=== PATIENT | female | born 1950 | race Caucasian/White ===

== ENCOUNTER 2017-01-06 11:31 | Emergency (ER) | payer OTHER, MEDICARE ==
--- NOTE | 2017-01-06 13:00 | DIAGNOSTIC IMAGING REPORT ---
PROCEDURE: CT HEAD WITHOUT CONTRAST INDICATION: TRAUMA/INJURY TECHNIQUE: Axial CT images were acquired through the head. Coronal and sagittal reformations were created. COMPARISON: None. FINDINGS: No intracranial hemorrhage or extraaxial fluid collections. Ventricles are normal in size, shape and position. There is no mass, mass effect or midline shift. The ty-white matter differentiation is normal. There is no edema. The paranasal sinuses and mastoid air cells are normally aerated. There is a small subgaleal hematoma on the left occipital region without underlying fracture. The globes, orbits, and other extracranial soft tissues are otherwise normal. IMPRESSION: 1. No CT evidence of acute intracranial process. 2. Small left occipital soft tissue hematoma without underlying fracture. 3. Findings discussed with Dr. Solis at 12:[address] scans at this facility use dose modulation, iterative reconstruction, and/or weight-based dosing when appropriate to reduce radiation dose to as low as reasonably achievable.
--- NOTE | 2017-01-06 16:09 | DIAGNOSTIC IMAGING REPORT ---
PROCEDURE: XR CHEST 1 VIEW INDICATION: SYNCOPE TECHNIQUE: Portable AP view (). COMPARISON: None. FINDINGS: Lungs are clear. Heart and mediastinum are normal. Thorax is normal. IMPRESSION: 1. Negative chest.
--- NOTE | 2017-01-06 16:47 | ED CLINICAL REPORT ---
Clinical Report - Physicians/Mid Levels [facility] [address] [place] [address] 01/06/2017 11:32 Patient: JARON SALTER Time Seen: 11:48. Arrived- By private vehicle. Historian- patient. HISTORY OF PRESENT ILLNESS Chief Complaint: SINGLE SYNCOPAL EPISODE. The patient has recovered. It was abrupt in onset. This occurred just prior to arrival. Event was not witnessed. At time of event, she was standing. This did not occur during exertion. The patient lost consciousness and collapsed. No incontinence. The patient had preceding symptoms of light-headedness. No preceding symptoms of nausea, dim vision, chest pain, warmth or abdominal pain. Had a single episode. The episode was brief and lasted an unknown duration. No injuries noted. Currently has headache (with dizziness). Similar symptoms previously: Several times. REVIEW OF SYSTEMS All systems otherwise negative, except as recorded above. PAST HISTORY ( PCP - [facility]). Problems: Roescia . Back Injury. Depression. Back Pain. Hypertension. Additional Surgeries: Appendectomy. Medications: Doxycycline (Rosacea) Oral. Multi Vitamin/Minerals Oral. Allergies: None. SOCIAL HISTORY Never smoker. No alcohol use or drug use. FAMILY HISTORY Heart disease in first-degree relative (father), grandparent; cancer in first-degree relative (mother). father due to aspiration pneumonia, he had hydrocephalus. ADDITIONAL NOTES The nursing notes have been reviewed. PHYSICAL EXAM Vital Signs: 01/06/2017 11:33 BP: 154/90. HR: 92. RR: 13. O2 saturation: 100%. Temp: 98 F. Pain level now: 1010. Have been reviewed. Appearance: Alert. Eyes: Pupils equal, round and reactive to light. No nystagmus. ENT: Normal ENT inspection. Pharynx normal. Neck: Normal inspection. Neck supple. CVS: Normal heart rate and rhythm. Heart sounds normal. Respiratory: No respiratory distress. Breath sounds normal. Abdomen: Soft and nontender. No organomegaly. Back: Normal inspection. Skin: Skin warm and dry. Normal skin color. No rash. Normal skin turgor. Extremities: Extremities exhibit normal ROM. No calf tenderness. No lower extremity edema. Neuro: Alert. Oriented X 3. Mood/affect normal. Speech normal. Cranial nerves normal (as tested). No cerebellar findings. No motor deficit. No sensory deficit. LABS, X-RAYS, AND EKG EKG: Rate: 88. RBBB. Prior EKG unavailable. The study has been independently viewed by me. Chest X-ray: Normal Chest X-Ray. CT Head: (IMPRESSION: 1. No CT evidence of acute intracranial process. 2. Small left occipital soft tissue hematoma without underlying fracture.). The study was interpreted contemporaneously by me and discussed with the radiologist. Laboratory Tests: UA-Culture if indicated: (ALICE: 01/06/2017 14:14) ( MsgRcvd 01/06/2017 14:46) Final results Test Result Flag Units (Reference) URINE COLOR YELLOW URINE APPEARANCE CLEAR URINE GLUCOSE NEGATIVE (NEGATIVE) URINE BILIRUBIN NEGATIVE (NEGATIVE) URINE KETONE 3+ (NEGATIVE) URINE SPECIFIC GRAVITY 1.020 (1.010-1.030) URINE PH 6.0 (5.0-8.0) URINE PROTEIN NEGATIVE (NEGATIVE) URINE UROBILINOGEN 0.2 EU/dL (0.2-1.0) URINE NITRITE NEGATIVE (NEGATIVE) URINE BLOOD NEGATIVE (NEGATIVE) URINE LEUK ESTERASE NEGATIVE (NEGATIVE) URINE RBC NONE SEEN rbc/hpf (0-1) URINE WBC 0-1 wbc/hpf (0-1) URINE EPITHELIAL CELLS 0-1 EPI/hpf (0-5) URINE BACTERIA NONE SEEN (NONE SEEN) URINE COMMENT CULT NOT INDICATED URINE CULTURES ARE SET-UP BASED ON THE FOLLOWING CRITERIA:POSITIVE NITRITEPOSITIVE LEUKOCYTE ESTERASEGREATER THAN 10 WHITE BLOOD CELLSMODERATE (2+) OR GREATER BACTERIA CBC w Diff: (ALICE: 01/06/2017 11:35) ( [facility] 01/06/2017 11:55) Final results Test Result Flag Units (Reference) WHITE BLOOD COUNT 6.7 K/uL (4.5-11.5) RED BLOOD COUNT 4.25 M/uL (4.00-5.20) HEMOGLOBIN 12.7 gm/dL (12.0-16.0) HEMATOCRIT 38.2 % (36.0-46.0) MEAN CELL VOLUME 90 fL (80-100) MEAN CORPUSCULAR HGB 30 pg (26-34) MEAN CORPUSCULAR HGB CONC 33 g/dL (31-37) RED CELL DISTRIBUTION WIDTH 13.9 % (11.6-14.8) PLATELET COUNT 295 K/uL (150-400) NEUTROPHIL % 56.7 % (50-75) LYMPH % 33.8 % (25-40) MONO % 6.4 % (3-14) EOSINOPHIL % 1.9 % (0-4) BASOPHIL % 1.2 % (0-2) CPK: (ALICE: 01/06/2017 11:35) ( [facility] 01/06/2017 19:12) Final results Test Result Flag Units (Reference) CPK 83 U/L (24-260) TROPONIN I <0.05 ng/mL (0.00-1.5) TROPONIN REFERENCE RANGE:<0.1 NEGATIVE0.1-1.5 INDETERMINANT>1.5 POSITIVE CMP: (ALICE: 01/06/2017 11:35) ( MsgRcvd 01/06/2017 12:11) Final results Test Result Flag Units (Reference) GLUCOSE 91 mg/dL (70-110) BUN 10 mg/dL (7-18) CREATININE 0.8 mg/dL (0.6-1.3) Estimated GFR >60 mL/min Estimated GFR- >60 mL/min Note: Persistent reduction over 3 months in eGFR<60 mL/min/1.73 m2 defines CKD. Patients with eGFR values>=60 mL/min/1.73 m2 may also have CKD if evidence ofpersistent proteinuria. Additional information may be foundat [email or web address].org. SODIUM 139 mmol/L (136-145) POTASSIUM 3.5 mmol/L (3.5-5.1) CHLORIDE 103 mmol/L (98-107) CARBON DIOXIDE 26 mmol/L (21-32) CALCIUM 9.6 mg/dL (8.5-10.1) TOTAL PROTEIN 7.5 g/dL (6.4-8.2) ALBUMIN 4.0 g/dL (3.3-5.0) BILIRUBIN, TOTAL 0.5 mg/dL (0.0-1.0) ALKALINE PHOSPHATASE 28 L U/L (46-116) AST (SGOT) 19 U/L (15-37) ALT (SGPT) 20 U/L (12-78) LIPASE 172 U/L (73-393) AMYLASE 41 U/L (25-115) . PROGRESS AND PROCEDURES Course of Care: Patient is stable. Discussed case with on-call health care provider, (Mendez Gentile). Reviewed test results and need for additional work-up. Agreed upon treatment plan and need for patient follow-up. Health care provider will see patient in office. Consult obtained. Dr. Morgan - he reviewed the patient's history, laboratory results, EKG and chest x-ray results with me. He felt that the rest of the patient's workup could be performed on an outpatient basis. Case discussed. Patient/family counseled. Old medical records reviewed. Disposition: Discharged. Condition: stable. CLINICAL IMPRESSION Syncope. Minor head injury. Loss of consciousness of unknown duration. INSTRUCTIONS Rest. Drink plenty of fluids. (Follow-up with Dr. Rick Simms M.D. tomorrow. Call the [facility] [place] to schedule a visit at: [facility] ). Warnings: Further evaluation is necessary. HEAD INJURY PRECAUTIONS: An observer must check on the patient every 2 hours for the next 24 hours (awaken if sleeping) to confirm that the patient responds as expected, is not confused, has no new weakness or numbness, and has no other problems. GENERAL WARNINGS: Return or contact your physician immediately if your condition worsens or changes unexpectedly, if not improving as expected, or if other problems arise. Your Current Medications: CONTINUE TAKING THE FOLLOWING MEDICATIONS: Doxycycline (Rosacea) Oral. Multi Vitamin/Minerals Oral. Follow-up: Follow up with your doctor. Follow up with a latin dance instructor- as recommended by your primary care physician. Understanding of the discharge instructions verbalized by patient. (Electronically signed by Gold Solis MD 01/08/2017 2:56)
--- NOTE | 2017-01-06 16:47 | ED CLINICAL REPORT ---
Clinical Report - Physicians/Mid Levels [facility] [address] [place] [address] 01/06/2017 11:32 Patient: JARON SALTER Time Seen: 11:48. Arrived- By private vehicle. Historian- patient. HISTORY OF PRESENT ILLNESS Chief Complaint: SINGLE SYNCOPAL EPISODE. The patient has recovered. It was abrupt in onset. This occurred just prior to arrival. Event was not witnessed. At time of event, she was standing. This did not occur during exertion. The patient lost consciousness and collapsed. No incontinence. The patient had preceding symptoms of light-headedness. No preceding symptoms of nausea, dim vision, chest pain, warmth or abdominal pain. Had a single episode. The episode was brief and lasted an unknown duration. No injuries noted. Currently has headache (with dizziness). Similar symptoms previously: Several times. REVIEW OF SYSTEMS All systems otherwise negative, except as recorded above. PAST HISTORY ( PCP - [facility]). Problems: Roescia . Back Injury. Depression. Back Pain. Hypertension. Additional Surgeries: Appendectomy. Medications: Doxycycline (Rosacea) Oral. Multi Vitamin/Minerals Oral. Allergies: None. SOCIAL HISTORY Never smoker. No alcohol use or drug use. FAMILY HISTORY Heart disease in first-degree relative (father), grandparent; cancer in first-degree relative (mother). father due to aspiration pneumonia, he had hydrocephalus. ADDITIONAL NOTES The nursing notes have been reviewed. PHYSICAL EXAM Vital Signs: 01/06/2017 11:33 BP: 154/90. HR: 92. RR: 13. O2 saturation: 100%. Temp: 98 F. Pain level now: 1010. Have been reviewed. Appearance: Alert. Eyes: Pupils equal, round and reactive to light. No nystagmus. ENT: Normal ENT inspection. Pharynx normal. Neck: Normal inspection. Neck supple. CVS: Normal heart rate and rhythm. Heart sounds normal. Respiratory: No respiratory distress. Breath sounds normal. Abdomen: Soft and nontender. No organomegaly. Back: Normal inspection. Skin: Skin warm and dry. Normal skin color. No rash. Normal skin turgor. Extremities: Extremities exhibit normal ROM. No calf tenderness. No lower extremity edema. Neuro: Alert. Oriented X 3. Mood/affect normal. Speech normal. Cranial nerves normal (as tested). No cerebellar findings. No motor deficit. No sensory deficit. LABS, X-RAYS, AND EKG EKG: Rate: 88. RBBB. Prior EKG unavailable. The study has been independently viewed by me. Chest X-ray: Normal Chest X-Ray. CT Head: (IMPRESSION: 1. No CT evidence of acute intracranial process. 2. Small left occipital soft tissue hematoma without underlying fracture.). The study was interpreted contemporaneously by me and discussed with the radiologist. Laboratory Tests: UA-Culture if indicated: (ALICE: 01/06/2017 14:14) ( MsgRcvd 01/06/2017 14:46) Final results Test Result Flag Units (Reference) URINE COLOR YELLOW URINE APPEARANCE CLEAR URINE GLUCOSE NEGATIVE (NEGATIVE) URINE BILIRUBIN NEGATIVE (NEGATIVE) URINE KETONE 3+ (NEGATIVE) URINE SPECIFIC GRAVITY 1.020 (1.010-1.030) URINE PH 6.0 (5.0-8.0) URINE PROTEIN NEGATIVE (NEGATIVE) URINE UROBILINOGEN 0.2 EU/dL (0.2-1.0) URINE NITRITE NEGATIVE (NEGATIVE) URINE BLOOD NEGATIVE (NEGATIVE) URINE LEUK ESTERASE NEGATIVE (NEGATIVE) URINE RBC NONE SEEN rbc/hpf (0-1) URINE WBC 0-1 wbc/hpf (0-1) URINE EPITHELIAL CELLS 0-1 EPI/hpf (0-5) URINE BACTERIA NONE SEEN (NONE SEEN) URINE COMMENT CULT NOT INDICATED URINE CULTURES ARE SET-UP BASED ON THE FOLLOWING CRITERIA:POSITIVE NITRITEPOSITIVE LEUKOCYTE ESTERASEGREATER THAN 10 WHITE BLOOD CELLSMODERATE (2+) OR GREATER BACTERIA CBC w Diff: (ALICE: 01/06/2017 11:35) ( [facility] 01/06/2017 11:55) Final results Test Result Flag Units (Reference) WHITE BLOOD COUNT 6.7 K/uL (4.5-11.5) RED BLOOD COUNT 4.25 M/uL (4.00-5.20) HEMOGLOBIN 12.7 gm/dL (12.0-16.0) HEMATOCRIT 38.2 % (36.0-46.0) MEAN CELL VOLUME 90 fL (80-100) MEAN CORPUSCULAR HGB 30 pg (26-34) MEAN CORPUSCULAR HGB CONC 33 g/dL (31-37) RED CELL DISTRIBUTION WIDTH 13.9 % (11.6-14.8) PLATELET COUNT 295 K/uL (150-400) NEUTROPHIL % 56.7 % (50-75) LYMPH % 33.8 % (25-40) MONO % 6.4 % (3-14) EOSINOPHIL % 1.9 % (0-4) BASOPHIL % 1.2 % (0-2) CPK: (ALICE: 01/06/2017 11:35) ( [facility] 01/06/2017 19:12) Final results Test Result Flag Units (Reference) CPK 83 U/L (24-260) TROPONIN I <0.05 ng/mL (0.00-1.5) TROPONIN REFERENCE RANGE:<0.1 NEGATIVE0.1-1.5 INDETERMINANT>1.5 POSITIVE CMP: (ALICE: 01/06/2017 11:35) ( MsgRcvd 01/06/2017 12:11) Final results Test Result Flag Units (Reference) GLUCOSE 91 mg/dL (70-110) BUN 10 mg/dL (7-18) CREATININE 0.8 mg/dL (0.6-1.3) Estimated GFR >60 mL/min Estimated GFR- >60 mL/min Note: Persistent reduction over 3 months in eGFR<60 mL/min/1.73 m2 defines CKD. Patients with eGFR values>=60 mL/min/1.73 m2 may also have CKD if evidence ofpersistent proteinuria. Additional information may be foundat [email or web address].org. SODIUM 139 mmol/L (136-145) POTASSIUM 3.5 mmol/L (3.5-5.1) CHLORIDE 103 mmol/L (98-107) CARBON DIOXIDE 26 mmol/L (21-32) CALCIUM 9.6 mg/dL (8.5-10.1) TOTAL PROTEIN 7.5 g/dL (6.4-8.2) ALBUMIN 4.0 g/dL (3.3-5.0) BILIRUBIN, TOTAL 0.5 mg/dL (0.0-1.0) ALKALINE PHOSPHATASE 28 L U/L (46-116) AST (SGOT) 19 U/L (15-37) ALT (SGPT) 20 U/L (12-78) LIPASE 172 U/L (73-393) AMYLASE 41 U/L (25-115) . PROGRESS AND PROCEDURES Course of Care: Patient is stable. Discussed case with on-call health care provider, (Mendez Gentile). Reviewed test results and need for additional work-up. Agreed upon treatment plan and need for patient follow-up. Health care provider will see patient in office. Consult obtained. Dr. Morgan - he reviewed the patient's history, laboratory results, EKG and chest x-ray results with me. He felt that the rest of the patient's workup could be performed on an outpatient basis. Case discussed. Patient/family counseled. Old medical records reviewed. Disposition: Discharged. Condition: stable. CLINICAL IMPRESSION Syncope. Minor head injury. Loss of consciousness of unknown duration. INSTRUCTIONS Rest. Drink plenty of fluids. (Follow-up with Dr. Rick Simms M.D. tomorrow. Call the [facility] to schedule a visit at: [facility] ). Warnings: Further evaluation is necessary. HEAD INJURY PRECAUTIONS: An observer must check on the patient every 2 hours for the next 24 hours (awaken if sleeping) to confirm that the patient responds as expected, is not confused, has no new weakness or numbness, and has no other problems. GENERAL WARNINGS: Return or contact your physician immediately if your condition worsens or changes unexpectedly, if not improving as expected, or if other problems arise. Your Current Medications: CONTINUE TAKING THE FOLLOWING MEDICATIONS: Doxycycline (Rosacea) Oral. Multi Vitamin/Minerals Oral. Follow-up: Follow up with your doctor. Follow up with a printing agent- as recommended by your primary care physician. Understanding of the discharge instructions verbalized by patient. (Electronically signed by Gold Solis MD 01/08/2017 2:56)
--- NOTE | 2017-01-06 16:47 | ED NURSING NOTES ---
Clinical Report - Nurses [facility] [address] [place] [address] 01/06/2017 11:32 Patient: JARON SALTER TRIAGE Triage time 1133 AM. Acuity: LEVEL 2. Chief Complaint: DIZZINESS and NEAR-SYNCOPE. Alert. No acute distress. SEPSIS SCREEN: Sepsis Screen. Negative (no infection suspected/documented). MATTHEW COMA SCORE: Matthew Coma Scale: 15- eyes open spontaneously (4); best verbal response- oriented x 4 (5); best motor response- obeys commands (6). --11:45 Meka Jewell R.N. 11:33 01/06/17. BP: 154/90. HR: 92. RR: 13. O2 saturation: 100% on room air. Temp: 98 F (oral). Pain level now: 06/24. --11:45 Meka Jewell R.N. Weight: 76.2 kg. Height/Length: 70 inches. BMI: 24.1. --11:33 Meka Jewell R.N. Medications Doxycycline (Rosacea) Oral. Multi Vitamin/Minerals Oral. --11:43 Meka Jewell R.N. Allergies None. --11:43 Meka Jewell R.N. Medication/allergy information source: the patient. --11:45 Meka Jewell R.N. History Arrived by private vehicle. Historian: patient. Accompanied by family. Primary physician ([facility]). 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 FARRUKH Jewell was walking on by when I saw her trying to get up from the floor.). This started today. Onset. (1134). She has had nausea and a headache and experienced syncope. No ear pain, trouble walking, vomiting or weakness. 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 PAST MEDICAL HX: Immunizations: up-to-date. The patient is post-menopausal. Sexual history - sexually active. No contraception. SOCIAL HX: No infectious disease exposure. ABUSE ASSESSMENT: No report of abuse. SELF HARM ASSESSMENT: A self harm assessment was performed. The patient answered "no" to the question "Do you have thoughts of harming or killing yourself?" and "Have you recently had thoughts about harming or killing others?". FALL RISK ASSESSMENT: Fall risk assessment completed. No fall risk identified. NUTRITIONAL RISK ASSESSMENT: The nutritional risk assessment revealed no deficiencies. FUNCTIONAL ASSESSMENT: Functional assessment: no impairments noted. LEARNING NEEDS ASSESSMENT: The learning needs assessment revealed no barriers. SKIN INTEGRITY ASSESSMENT: Skin integrity risk assessment completed. No skin integrity risk identified. --11:45 Meka Jewell R.N. PROBLEMS: [place] . Back Injury. Depression. Back Pain. Hypertension. Immunizations. --11:44 Meka Jewell R.N. ADDITIONAL SURGERIES: Appendectomy. --11:44 Meka Jewell R.N. Interventions 11:36 01/06/17. ID band on patient. --11:45 Meka Jewell R.N. PHYSICAL ASSESSMENT (Pt is a volunteer when found in room 5). GENERAL / NEURO / PSYCH: Oriented X 4. Appears in no acute distress. Alert. Speech within normal limits. She has had weakness. Pupillary exam: Right pupil 2mm, round and briskly reactive to light directly. Left pupil: 2mm, round and briskly reactive to light directly. HEENT: No facial asymmetry noted. Pupils equal, round and reactive to light. RESPIRATORY: Breath sounds within normal limits. Respirations not labored. CVS: Normal sinus rhythm noted. Capillary refill less than 2 seconds. GI / : Abdomen soft and nontender. SKIN: Skin is warm and dry. --11:46 Meka Jewell R.N. NURSING PROGRESS NOTES 11:41 01/06/2017 Site #1 started via IV in the left antecubital space with an 20g angiocath; two attempts. Blood drawn: rainbow set. Labeled in the presence of the patient and sent to the lab. --11:51 Meka Jewell R.N. The initial plan of care for this patient has been created This plan of care was discussed with the patient. security monitor, pulse oximeter and NIBP monitor placed on patient. EKG time: (1152 AM). EKG was ordered, performed by a tech and shown to the ED physician. Finger stick glucose: 90; performed by nurse. Patient gowned. Two patient identifiers checked. Call light placed in reach. Side rails up. Bed placed in lowest position. Brakes of bed on. --11:51 Meka Jewell R.N. 11:50 01/06/17. BP: 140/83 (regular adult cuff) taken on the left arm, via an automated monitor. HR: 90. RR: 15. O2 saturation: 100%. Pain level now: 02/22. --11:52 Meka Jewell R.N. Cardiac rhythm: normal sinus rhythm. The patient is calm. Overall patient status is the same- she states feels better. GENERAL / NEURO / PSYCH: The patient reports headache. Denies anxiety or restlessness. RESPIRATORY: Denies difficulty breathing. CVS: Denies chest pain. Cardiac rhythm: normal sinus rhythm. Patient ready for evaluation- chart flagged and ED physician notified. --11:52 Meka Jewell R.N. 11:59 01/06/17. BP: 136/80 (regular adult cuff) taken on the left arm, via an automated monitor, while lying. HR: 91 (regular). --12:00 Summer Syed 12:01 01/06/17. BP: 130/89 (regular adult cuff) taken on the left arm, via an automated monitor, while sitting. HR: 90 (regular). --12:02 Summer Syed 12:06 01/06/17. BP: 133/93 (regular adult cuff) taken on the left arm, via an automated monitor, while standing. HR: 101 (irregular). --12:06 Summer Syed 12:01/06/17. BP: 124/73. HR: 88. RR: 14. O2 saturation: 100% on room air. Pain level now: 02/22. --12:28 Meka Jewell R.N. Cardiac rhythm: normal sinus rhythm. security monitor, pulse oximeter and NIBP monitor placed on patient. Reassurance given. The patient is calm. Overall patient status is the same- she states feels the same. ( Pt returned from CT, as per tech and pt, she became dizzy upon sitting up from test accompanied by feeling nauseous which is now "better" still complaining of H/A specially when she moves her head, denies double vision, neuro checks intact. Family at bedside. Will monitor). GENERAL / NEURO / PSYCH: The patient reports headache. RESPIRATORY: Denies difficulty breathing. CVS: Denies chest pain. Cardiac rhythm: normal sinus rhythm. Patient returned from CT by stretcher. Two patient identifiers checked. Call light placed in reach. --12:28 Meka Jewell R.N. 12:44 01/06/2017 Zofran (Ondansetron HCl) IVP 4 mg given over 2 minute(s) via site #1. Allergies verified and confirmed 5 rights. IV patency established. IV site checked: no pain, redness, or swelling. IV flushed thoroughly pre- and post-medication administration. IVP given by RN. --12:46 Meka Jewell R.N. 12:46 01/06/2017 Dilaudid (HYDROmorphone HCl PF) IVP 0.5 mg given over 30 second(s) via site #1. Allergies verified, confirmed 5 rights and sedative warning given to the patient and patient's family. IV patency established. IV site checked: no pain, redness, or swelling. IV flushed thoroughly pre- and post-medication administration. IVP given by RN. --12:47 Meka Jewell R.N. 13:25 01/06/2017 Dilaudid IVP Response: no adverse reaction pain is improving. Symptoms have improved. --13:25 Meka Jewell R.N. 13:26 01/06/2017 Zofran IVP Response: no adverse reaction symptoms have improved the patient feels better. --13:26 Meka Jewell R.N. Cardiac rhythm: normal sinus rhythm. Reassessment after fluids administered. She is calm and resting quietly and has had no adverse reaction. ( Pt feeling better with H/A post med, still feels dizzy. Will monitor). GENERAL / NEURO / PSYCH: The patient reports headache. Patient is calm and cooperative. Affect appears normal. Alert. RESPIRATORY: No respiratory distress. CVS: Normal sinus rhythm noted. SKIN: Skin is warm and dry. --13:28 Meka Jewell R.N. 13:26 01/06/17. BP: 126/77 (regular adult cuff) taken on the left arm, via an automated monitor, while sitting. HR: 77. RR: 11. O2 saturation: 100%. Pain level now: 3. --13:28 Meka Jewell R.N. 14:35 01/06/17. BP: 117/71. HR: 70. RR: 11. O2 saturation: 100%. Pain level now: 3. --14:36 Meka Jewell R.N. Cardiac rhythm: normal sinus rhythm. security monitor, pulse oximeter and NIBP monitor placed on patient. Reassurance given. Reassessment after fluids administered. She is calm and resting quietly. GENERAL / NEURO / PSYCH: The patient reports headache. RESPIRATORY: Denies difficulty breathing. CVS: Denies chest pain. Call light placed in reach. Side rails up x 1. --14:36 Meka Jewell R.N. 17:05 01/06/2017 Site #1 reassessed; patent, infusing well and no signs of infection or infiltration. Good blood return present. Converted to saline lock. Flushed with 10 mL saline. --17:05 Meka Jewell R.N. late entry - 16:00. Cardiac rhythm: normal sinus rhythm. Reassurance given. GENERAL / NEURO / PSYCH: Denies restlessness or headache. Patient is calm and cooperative. Affect appears normal. Alert. Oriented X 4. RESPIRATORY: Denies difficulty breathing. No respiratory distress. CVS: Denies chest pain. Normal sinus rhythm noted. SKIN: Skin is warm and dry. --17:05 Meka Jewell R.N. 17:04 01/06/17. BP: 124/65 (regular adult cuff) taken on the left arm, via an automated monitor, while sitting. HR: 65. RR: 14. O2 saturation: 100% on room air. Pain level now: 0/10. --17:05 Meka Jewell R.N. Cardiac rhythm: normal sinus rhythm. ( Pt resting comfortably, still dizzy at times, specially when she moves suddenly. VSS, pt being admitted to unit, family at bedside and updated. Will monitor). Call light placed in reach. Side rails up x 1. Bed placed in lowest position. Brakes of bed on. --17:07 Meka Jewell R.N. 17:05 01/06/17. BP: 128/68 (regular adult cuff) taken on the left arm, via an automated monitor, while lying. HR: 61. RR: 12. O2 saturation: 100% on room air. Temp: 97.7 F (oral). Pain level now: 0/10. --17:07 Meka Jewell R.N. Reassurance given. ( Pt OOB x 1 assistance with dizziness noted and expressed, walked over to commode. UO of approximately 250cc of light urine. Waiting on admission orders.). Call light placed in reach. --17:53 Meka Jewell R.N. DISPOSITION / DISCHARGE Cardiac rhythm: normal sinus rhythm. Departure time: 1950 PM. Condition at departure: improved and stable. The goals identified in the patient's plan of care were met. No learning barriers present. Discharge instructions provided and reviewed with the patient. Reviewed warnings (s/s of head trauma and stroke). Reviewed referral to an non cdl driver for followup. Activity restrictions (rest) reviewed. Work note given. Patient and spouse verbalized understanding. Written instructions provided in [place]. No medication instructions. The patient was discharged by the physician. She was discharged home and accompanied by spouse. She left the Emergency Department ambulatory and via private vehicle. Spouse driving. FALL RISK ASSESSMENT: Fall risk assessment completed. No fall risk identified. --19:53 Meka Jewell R.N. 19:45 01/06/17. BP: 120/74. HR: 68. RR: 14 (regular and unlabored). O2 saturation: 100% on room air. Temp: 98 F (oral). Pain level now: 0/10. --19:53 Meka Jewell R.N. 19:43 01/06/2017 Site #1 removed upon discharge. Catheter intact. Manual pressure, pressure dressing, bandaid and bandage applied. --19:53 Meka Jewell R.N. Locked/Released at 01/06/2017 19:53 by Meka Jewell R.N.
--- NOTE | 2017-01-06 16:48 | ED ORDER SUMMARY ---
..... Patient: JARON SALTER OrderSheet [facility] VisitID: [id number] [address] [place] [address] 66y, F Registration Date/Time: 01/06/2017 ORDER SHEET Weight: 76.2 kg Allergies: None GENERAL ORDERS: CBC w Diff Urgent (11:37 01/06/2017 MWinterer R.N. verbal order read back to José Luis GIMENEZ) (Ack 11:38 Pao) (11:43 SReitz R.N.) CMP Urgent (11:37 01/06/2017 MWinterer R.N. verbal order read back to José Luis GIMENEZ) (Ack 11:38 JULIANoeceliner) (11:43 SReitz R.N.) Amylase Urgent (11:37 01/06/2017 MWinterer R.N. verbal order read back to José Luis GIMENEZ) (Ack 11:38 JULIANoeez) (11:43 SReitz R.N.) Lipase Urgent (11:37 01/06/2017 MWinterer R.N. verbal order read back to José Luis GIMENEZ) (Ack 11:38 JULIANoerner) (11:43 SReitz R.N.) UA-Culture if indicated Urgent (11:37 01/06/2017 MWinterer R.N. verbal order read back to José Luis GIMENEZ) (Ack 11:38 JULIANoeez) (14:16 EHassan R.N.) CT Head wo Cont Urgent (11:37 01/06/2017 MWinterer R.N. verbal order read back to José Luis GIMENEZ) (Ack 11:38 Pao) (12:20 EHassan R.N.) Vitals - Orthostatic (11:42 01/06/2017 MWinterer R.N. verbal order read back to José Luis GIMENEZ) (12:15 RKaruga) EKG - ER Stat (11:44 01/06/2017 MWinterer R.N. verbal order read back to José Luis GIMENEZ) (Ack 11:48 JULIANoerner) (11:52 EHassan R.N.) Chest 1V Urgent (15:45 01/06/2017 José Luis GIMENEZ) (Ack 15:46 Pao) (15:56 JULIANoeez) CPK Urgent (18:19 01/06/2017 José Luis GIMENEZ) (18:23 Pao) Troponin-I Urgent (18:19 01/06/2017 José Luis GIMENEZ) (18:23 Pao) MEDICATION ORDERS: IV FLUIDS: Dilaudid IV 0.5 mg (HIGH ALERT MEDICATION, NOW) (12:41 01/06/2017 José Luis GIMENEZ) (12:47 EHassaefrain R.N.) Zofran IV 4 mg (NOW) (12:41 01/06/2017 José Luis GIMENEZ) (12:46 EHviv R.N.) ORDER SHEET NOTES: [Electronically signed by Meka Jewell R.N. (19:53 01/06/2017)] [Electronically signed by Gold Solis MD (02:56 01/08/2017)] [Electronically locked/signed by Meka Jewell R.N. (19:53 01/06/2017)]
--- NOTE | 2017-01-06 16:48 | ED ORDER SUMMARY ---
..... Patient: JARON SALTER OrderSheet [facility] VisitID: [id number] [address] [place] [address] 66y, F Registration Date/Time: 01/06/2017 ORDER SHEET Weight: 76.2 kg Allergies: None GENERAL ORDERS: CBC w Diff Urgent (11:37 01/06/2017 MWinterer R.N. verbal order read back to José Luis GIMENEZ) (Ack 11:38 Pao) (11:43 SReitz R.N.) CMP Urgent (11:37 01/06/2017 MWinterer R.N. verbal order read back to José Luis GIMENEZ) (Ack 11:38 JULIANoeceliner) (11:43 SReitz R.N.) Amylase Urgent (11:37 01/06/2017 MWinterer R.N. verbal order read back to José Luis GIMENEZ) (Ack 11:38 JULIANoeez) (11:43 SReitz R.N.) Lipase Urgent (11:37 01/06/2017 MWinterer R.N. verbal order read back to José Luis GIMENEZ) (Ack 11:38 JULIANoerner) (11:43 SReitz R.N.) UA-Culture if indicated Urgent (11:37 01/06/2017 MWinterer R.N. verbal order read back to José Luis GIMENEZ) (Ack 11:38 JULIANoeez) (14:16 EHassan R.N.) CT Head wo Cont Urgent (11:37 01/06/2017 MWinterer R.N. verbal order read back to José Luis GIMENEZ) (Ack 11:38 Pao) (12:20 EHassan R.N.) Vitals - Orthostatic (11:42 01/06/2017 MWinterer R.N. verbal order read back to José Luis GIMENEZ) (12:15 RKaruga) EKG - ER Stat (11:44 01/06/2017 MWinterer R.N. verbal order read back to José Luis GIMENEZ) (Ack 11:48 JULIANoerner) (11:52 EHassan R.N.) Chest 1V Urgent (15:45 01/06/2017 José Luis GIMENEZ) (Ack 15:46 Pao) (15:56 JLUIANoeez) CPK Urgent (18:19 01/06/2017 José Luis GIMENEZ) (18:23 Pao) Troponin-I Urgent (18:19 01/06/2017 José Luis GIMENEZ) (18:23 Pao) MEDICATION ORDERS: IV FLUIDS: Dilaudid IV 0.5 mg (HIGH ALERT MEDICATION, NOW) (12:41 01/06/2017 José Luis GIMENEZ) (12:47 EHassaefrain R.N.) Zofran IV 4 mg (NOW) (12:41 01/06/2017 José Luis GIMENEZ) (12:46 EHviv R.N.) ORDER SHEET NOTES: [Electronically signed by Meka Jewell R.N. (19:53 01/06/2017)] [Electronically signed by Gold Solis MD (02:56 01/08/2017)] [Electronically locked/signed by Meka Jewell R.N. (19:53 01/06/2017)]
--- NOTE | 2017-01-08 02:56 | ED MED RECONCILIATION SUMMARY ---
Patient: JARON SALTER Medication Reconciliation Report [facility] VisitID: [id number] [address] [place] [address] 66y, F Registration Date/Time: 01/06/2017 Weight: 76.2 kg Height/Length: 70 in. BMI: 24.1 ALLERGIES: None The patient's Home Medications are listed below: CONTINUE TAKING THE FOLLOWING MEDICATIONS: Doxycycline (Rosacea) Oral Multi Vitamin/Minerals Oral The source(s) of the original Home Medication information: patient The following Medications were given to the patient in the Emergency Department: Zofran [IVP] IVP 4 mg, administered: 01/06/2017 12:44:00 PM Dilaudid [IVP] IVP 0.5 mg, administered: 01/06/2017 12:46:00 PM The following Medications were prescribed to the patient: None.
--- NOTE | 2017-01-08 02:56 | ED MED RECONCILIATION SUMMARY ---
Patient: JARON SALTER Medication Reconciliation Report [facility] VisitID: [id number] [address] [place] [address] 66y, F Registration Date/Time: 01/06/2017 Weight: 76.2 kg Height/Length: 70 in. BMI: 24.1 ALLERGIES: None The patient's Home Medications are listed below: CONTINUE TAKING THE FOLLOWING MEDICATIONS: Doxycycline (Rosacea) Oral Multi Vitamin/Minerals Oral The source(s) of the original Home Medication information: patient The following Medications were given to the patient in the Emergency Department: Zofran [IVP] IVP 4 mg, administered: 01/06/2017 12:44:00 PM Dilaudid [IVP] IVP 0.5 mg, administered: 01/06/2017 12:46:00 PM The following Medications were prescribed to the patient: None.
--- NOTE | 2017-01-08 02:56 | ED DISCHARGE INSTRUCTIONS ---
Patient: JARON SALTER General Instructions [facility] VisitID: [id number] [address] [place] [address] 66y, F Registration Date/Time: 01/06/2017 Syncope. Minor head injury. Loss of consciousness of unknown duration. INSTRUCTIONS Rest. Drink plenty of fluids. (Follow-up with Dr. Rick Simms M.D. tomorrow. Call the [facility] [facility] schedule a visit at: [facility] ). Warnings: Further evaluation is necessary. HEAD INJURY PRECAUTIONS: An observer must check on the patient every 2 hours for the next 24 hours (awaken if sleeping) to confirm that the patient responds as expected, is not confused, has no new weakness or numbness, and has no other problems. GENERAL WARNINGS: Return or contact your physician immediately if your condition worsens or changes unexpectedly, if not improving as expected, or if other problems arise. Your Current Medications: CONTINUE TAKING THE FOLLOWING MEDICATIONS: Doxycycline (Rosacea) Oral. Multi Vitamin/Minerals Oral. Follow-up: Follow up with your doctor. Follow up with a lead software qa engineer- as recommended by your primary care physician. Understanding of the discharge instructions verbalized by patient. ADDITIONAL INFORMATION Fainting:Uncertain Cause Fainting (syncope) is a temporary loss of consciousness ("passing out"). It occurs when blood flow to the brain is reduced. Near-fainting ("near-syncope") is very similar to fainting, but you do not fully "pass out". The common minor causes of fainting include: sudden fear, pain, nausea, emotional stress and overexertion. Suddenly standing up after sitting or lying for a long time can also cause fainting. The more serious causes for fainting are due to either a very slow or very fast or very slow heart beat ("arrhythmia"), other types of heart disease, dehydration, blood loss, seizure, stroke or ruptured blood vessel in the brain. Taking too much high blood pressure medicine can also cause low blood pressure and fainting. The exact cause of your episode is not certain. However, the tests today did not show any of the serious causes of fainting. Sometimes further testing is needed to find out if a serious problem exists. Therefore, it is important that you follow-up with your doctor as advised. Home Care: 1) Rest today. You may resume your normal activities when you are feeling back to normal. It is best to remain with someone who can check on you for the next 24 hours to watch for another episode of fainting. 2) If you become light-headed or dizzy, lie down immediately or sit with your head between your knees. 3) Because we do not know the exact cause of your near fainting spell, it is possible for another spell to occur without warning. Therefore, do not drive a car or operate dangerous equipment, do not take a bath alone (use a shower instead) and do not swim alone until your doctor says that you are no longer in danger of having another fainting spell. Follow Up with your doctor as advised. Get Prompt Medical Attention if any of the following occur: -- Another fainting spell occurs, which is not explained by the common causes listed above -- Chest, arm, neck, jaw, back or abdominal pain -- Shortness of breath -- Severe headache or seizure -- Blood in vomit, stools (black or red color) -- Unexpected vaginal bleeding -- Palpitations (very rapid or very slow or irregular heart beat) -- Signs of stroke: Weakness of an arm or leg or one side of the face Difficulty with speech or vision Extreme drowsiness, confusion, dizziness or fainting Head Injury With Wake-Up (Adult) You have had a head injury. It does not appear serious at this time. Symptoms of a more serious problem (concussion, bruising, or bleeding in the brain) may appear later. Therefore, watch for the WARNING SIGNS listed below. Home Care: During the next 24 hours someone must stay with you. This person should wake you every 2 hours to check for the signs below. If you have swelling of the face or scalp, apply an ice pack (ice cubes in a plastic bag, wrapped in a towel) for 20 minutes every 1-2 hours until the swelling starts to go down. Do not use aspirin or ibuprofen (Motrin, Advil) after a head injury. You may use acetaminophen (Tylenol) to control pain, unless another pain medicine was prescribed. [NOTE: If you have chronic liver or kidney disease or ever had a stomach ulcer or GI bleeding, talk with your doctor before using these medicines.] For the next 24 hours: Do not take alcohol, sedatives, or medicines that make you sleepy. Do not drive or operate machinery. Avoid strenuous activities. No lifting or straining. If you have had any symptoms of a concussion today (nausea, vomiting, dizziness, confusion, headache, memory loss, or you were knocked out), do not return to sports or any activity that could result in another head injury until all symptoms are gone and you have been cleared by your doctor. A second head injury before fully recovering from the first one can lead to serious brain injury. Follow Up with your doctor if symptoms are not improving after 24 hours, or as directed. [NOTE: A radiologist will review any X-rays or CT scans that were taken. We will notify you of any new findings that may affect your care.] Get Prompt Medical Attention if any of the following WARNING SIGNS occur: Repeated vomiting Severe or worsening headache or dizziness Unusual drowsiness, or unable to awaken as usual Confusion or change in behavior or speech, memory loss, blurred vision Convulsion (seizure) Increasing scalp or face swelling Redness, warmth or pus from the swollen area Fluid drainage or bleeding from the nose or ears Head Injury With Wake-Up (Adult) You have had a head injury. It does not appear serious at this time. Symptoms of a more serious problem (concussion, bruising, or bleeding in the brain) may appear later. Therefore, watch for the WARNING SIGNS listed below. Home Care: During the next 24 hours someone must stay with you. This person should wake you every 2 hours to check for the signs below. If you have swelling of the face or scalp, apply an ice pack (ice cubes in a plastic bag, wrapped in a towel) for 20 minutes every 1-2 hours until the swelling starts to go down. Do not use aspirin or ibuprofen (Motrin, Advil) after a head injury. You may use acetaminophen (Tylenol) to control pain, unless another pain medicine was prescribed. [NOTE: If you have chronic liver or kidney disease or ever had a stomach ulcer or GI bleeding, talk with your doctor before using these medicines.] For the next 24 hours: Do not take alcohol, sedatives, or medicines that make you sleepy. Do not drive or operate machinery. Avoid strenuous activities. No lifting or straining. If you have had any symptoms of a concussion today (nausea, vomiting, dizziness, confusion, headache, memory loss, or you were knocked out), do not return to sports or any activity that could result in another head injury until all symptoms are gone and you have been cleared by your doctor. A second head injury before fully recovering from the first one can lead to serious brain injury. Follow Up with your doctor if symptoms are not improving after 24 hours, or as directed. [NOTE: A radiologist will review any X-rays or CT scans that were taken. We will notify you of any new findings that may affect your care.] Get Prompt Medical Attention if any of the following WARNING SIGNS occur: Repeated vomiting Severe or worsening headache or dizziness Unusual drowsiness, or unable to awaken as usual Confusion or change in behavior or speech, memory loss, blurred vision Convulsion (seizure) Increasing scalp or face swelling Redness, warmth or pus from the swollen area Fluid drainage or bleeding from the nose or ears You have been given the following additional information: Syncope, Unk Cause HEAD INJURY with Wake-Up (Adult) HEAD INJURY with Wake-Up (Adult) Rest. (Electronically signed by Gold Solis MD 01/08/2017 2:56)
--- NOTE | 2017-01-08 02:56 | ED DISCHARGE INSTRUCTIONS ---
Patient: JARON SALTER General Instructions [facility] VisitID: [id number] [address] [place] [address] 66y, F Registration Date/Time: 01/06/2017 Syncope. Minor head injury. Loss of consciousness of unknown duration. INSTRUCTIONS Rest. Drink plenty of fluids. (Follow-up with Dr. Rick Simms M.D. tomorrow. Call the [facility] to schedule a visit at: [facility] ). Warnings: Further evaluation is necessary. HEAD INJURY PRECAUTIONS: An observer must check on the patient every 2 hours for the next 24 hours (awaken if sleeping) to confirm that the patient responds as expected, is not confused, has no new weakness or numbness, and has no other problems. GENERAL WARNINGS: Return or contact your physician immediately if your condition worsens or changes unexpectedly, if not improving as expected, or if other problems arise. Your Current Medications: CONTINUE TAKING THE FOLLOWING MEDICATIONS: Doxycycline (Rosacea) Oral. Multi Vitamin/Minerals Oral. Follow-up: Follow up with your doctor. Follow up with a concrete stone fabricating supervisor- as recommended by your primary care physician. Understanding of the discharge instructions verbalized by patient. ADDITIONAL INFORMATION Fainting:Uncertain Cause Fainting (syncope) is a temporary loss of consciousness ("passing out"). It occurs when blood flow to the brain is reduced. Near-fainting ("near-syncope") is very similar to fainting, but you do not fully "pass out". The common minor causes of fainting include: sudden fear, pain, nausea, emotional stress and overexertion. Suddenly standing up after sitting or lying for a long time can also cause fainting. The more serious causes for fainting are due to either a very slow or very fast or very slow heart beat ("arrhythmia"), other types of heart disease, dehydration, blood loss, seizure, stroke or ruptured blood vessel in the brain. Taking too much high blood pressure medicine can also cause low blood pressure and fainting. The exact cause of your episode is not certain. However, the tests today did not show any of the serious causes of fainting. Sometimes further testing is needed to find out if a serious problem exists. Therefore, it is important that you follow-up with your doctor as advised. Home Care: 1) Rest today. You may resume your normal activities when you are feeling back to normal. It is best to remain with someone who can check on you for the next 24 hours to watch for another episode of fainting. 2) If you become light-headed or dizzy, lie down immediately or sit with your head between your knees. 3) Because we do not know the exact cause of your near fainting spell, it is possible for another spell to occur without warning. Therefore, do not drive a car or operate dangerous equipment, do not take a bath alone (use a shower instead) and do not swim alone until your doctor says that you are no longer in danger of having another fainting spell. Follow Up with your doctor as advised. Get Prompt Medical Attention if any of the following occur: -- Another fainting spell occurs, which is not explained by the common causes listed above -- Chest, arm, neck, jaw, back or abdominal pain -- Shortness of breath -- Severe headache or seizure -- Blood in vomit, stools (black or red color) -- Unexpected vaginal bleeding -- Palpitations (very rapid or very slow or irregular heart beat) -- Signs of stroke: Weakness of an arm or leg or one side of the face Difficulty with speech or vision Extreme drowsiness, confusion, dizziness or fainting Head Injury With Wake-Up (Adult) You have had a head injury. It does not appear serious at this time. Symptoms of a more serious problem (concussion, bruising, or bleeding in the brain) may appear later. Therefore, watch for the WARNING SIGNS listed below. Home Care: During the next 24 hours someone must stay with you. This person should wake you every 2 hours to check for the signs below. If you have swelling of the face or scalp, apply an ice pack (ice cubes in a plastic bag, wrapped in a towel) for 20 minutes every 1-2 hours until the swelling starts to go down. Do not use aspirin or ibuprofen (Motrin, Advil) after a head injury. You may use acetaminophen (Tylenol) to control pain, unless another pain medicine was prescribed. [NOTE: If you have chronic liver or kidney disease or ever had a stomach ulcer or GI bleeding, talk with your doctor before using these medicines.] For the next 24 hours: Do not take alcohol, sedatives, or medicines that make you sleepy. Do not drive or operate machinery. Avoid strenuous activities. No lifting or straining. If you have had any symptoms of a concussion today (nausea, vomiting, dizziness, confusion, headache, memory loss, or you were knocked out), do not return to sports or any activity that could result in another head injury until all symptoms are gone and you have been cleared by your doctor. A second head injury before fully recovering from the first one can lead to serious brain injury. Follow Up with your doctor if symptoms are not improving after 24 hours, or as directed. [NOTE: A radiologist will review any X-rays or CT scans that were taken. We will notify you of any new findings that may affect your care.] Get Prompt Medical Attention if any of the following WARNING SIGNS occur: Repeated vomiting Severe or worsening headache or dizziness Unusual drowsiness, or unable to awaken as usual Confusion or change in behavior or speech, memory loss, blurred vision Convulsion (seizure) Increasing scalp or face swelling Redness, warmth or pus from the swollen area Fluid drainage or bleeding from the nose or ears Head Injury With Wake-Up (Adult) You have had a head injury. It does not appear serious at this time. Symptoms of a more serious problem (concussion, bruising, or bleeding in the brain) may appear later. Therefore, watch for the WARNING SIGNS listed below. Home Care: During the next 24 hours someone must stay with you. This person should wake you every 2 hours to check for the signs below. If you have swelling of the face or scalp, apply an ice pack (ice cubes in a plastic bag, wrapped in a towel) for 20 minutes every 1-2 hours until the swelling starts to go down. Do not use aspirin or ibuprofen (Motrin, Advil) after a head injury. You may use acetaminophen (Tylenol) to control pain, unless another pain medicine was prescribed. [NOTE: If you have chronic liver or kidney disease or ever had a stomach ulcer or GI bleeding, talk with your doctor before using these medicines.] For the next 24 hours: Do not take alcohol, sedatives, or medicines that make you sleepy. Do not drive or operate machinery. Avoid strenuous activities. No lifting or straining. If you have had any symptoms of a concussion today (nausea, vomiting, dizziness, confusion, headache, memory loss, or you were knocked out), do not return to sports or any activity that could result in another head injury until all symptoms are gone and you have been cleared by your doctor. A second head injury before fully recovering from the first one can lead to serious brain injury. Follow Up with your doctor if symptoms are not improving after 24 hours, or as directed. [NOTE: A radiologist will review any X-rays or CT scans that were taken. We will notify you of any new findings that may affect your care.] Get Prompt Medical Attention if any of the following WARNING SIGNS occur: Repeated vomiting Severe or worsening headache or dizziness Unusual drowsiness, or unable to awaken as usual Confusion or change in behavior or speech, memory loss, blurred vision Convulsion (seizure) Increasing scalp or face swelling Redness, warmth or pus from the swollen area Fluid drainage or bleeding from the nose or ears You have been given the following additional information: Syncope, Unk Cause HEAD INJURY with Wake-Up (Adult) HEAD INJURY with Wake-Up (Adult) Rest. (Electronically signed by Gold Solis MD 01/08/2017 2:56)
--- NOTE | 2017-01-08 02:56 | ED MAR SUMMARY ---
..... Medication Administration Record [facility] [address] [place] [address] Patient: JARON SALTER Visit ID: [id number] 66y, F Weight: 76.2 kg Height/Length: 70 in BMI: 24.1 ALLERGIES: None Given 12:44 01/06/2017 Meka Jewell R.N. Medication Administered: ZOFRAN [IVP] (ONDANSETRON HCL), Dose: 4 mg IVP over 2 minute(s), Site: #1 left AC. Medication Ordered: Zofran IV 4 mg (NOW). Given 12:46 01/06/2017 Meka Jewell RElizabethN. Medication Administered: DILAUDID [IVP] (HYDROMORPHONE HCL PF), Dose: 0.5 mg IVP over 30 second(s), Site: #1 left AC. Medication Ordered: Dilaudid IV 0.5 mg (HIGH ALERT MEDICATION, NOW).
--- NOTE | 2017-01-08 02:56 | ED MAR SUMMARY ---
..... Medication Administration Record [facility] [address] [place] [address] Patient: JARON SALTER Visit ID: [id number] 66y, F Weight: 76.2 kg Height/Length: 70 in BMI: 24.1 ALLERGIES: None Given 12:44 01/06/2017 Meka Jewell R.N. Medication Administered: ZOFRAN [IVP] (ONDANSETRON HCL), Dose: 4 mg IVP over 2 minute(s), Site: #1 left AC. Medication Ordered: Zofran IV 4 mg (NOW). Given 12:46 01/06/2017 Meka Jewell RElizabethN. Medication Administered: DILAUDID [IVP] (HYDROMORPHONE HCL PF), Dose: 0.5 mg IVP over 30 second(s), Site: #1 left AC. Medication Ordered: Dilaudid IV 0.5 mg (HIGH ALERT MEDICATION, NOW).
== END 2017-01-06 19:51 | disposition home or self-care (01) ==
LOC: ED SRH 11:31
DX: S06.9X9A Unspecified intracranial injury with loss of consciousness of unspecified duration, initial encounter (principal); R55 Syncope and collapse; W01.10XA Fall on same level from slipping, tripping and stumbling with subsequent striking against unspecified object, initial encounter; I10 Essential (primary) hypertension; Y99.9 Unspecified external cause status; Z79.899 Other long term (current) drug therapy; Y92.9 Unspecified place or not applicable
CPT/HCPCS: 90004; 90098; 90100; 90616; 92235; 92530; 92610; 95059